=== PATIENT | female | born 1985 | race Caucasian/White ===

== ENCOUNTER → 2016-07-29 | Outpatient (CLI) | payer BC ==
[~2016-07-29] MED LIST: ENOX40IN SQ; MTR600X PO; OXYC-57 PO; PRENTAB26 PO
== END | disposition home or self-care (01) ==
LOC: C.PAPS 11:52
PROVIDERS: ATTEND Obstetrics & Gynecology
DX: Z01.419 Encounter for gynecological examination (general) (routine) without abnormal findings (principal)

== ENCOUNTER → 2016-09-16 | Outpatient (CLI) | payer BC | END | disposition home or self-care (01) | LOC: C.LABPBG 14:52 | PROVIDERS: ATTEND Obstetrics & Gynecology | DX: O09.10 Supervision of pregnancy with history of ectopic pregnancy, unspecified trimester (principal); Z3A.00 Weeks of gestation of pregnancy not specified ==

== ENCOUNTER → 2016-09-20 | Outpatient (CLI) | payer BC | END | disposition home or self-care (01) | LOC: C.LAB 07:44 | PROVIDERS: ATTEND Obstetrics & Gynecology | DX: O09.10 Supervision of pregnancy with history of ectopic pregnancy, unspecified trimester (principal); Z3A.00 Weeks of gestation of pregnancy not specified ==

== ENCOUNTER → 2016-10-03 | Outpatient (CLI) | payer BC ==
[2016-10-03 17:20] LABS: URINE APPEARANCE TURBID (CLEAR); URINE BILIRUBIN NEG (NEG); URINE COLOR YELLOW; URINE NITRITE NEG (NEG); URINE PH 7.5 (4.5-7.5); URINE SPECIFIC GRAVITY 1.019 (1.000-1.030); UROBILINOGEN NEG (NEG)
[2016-10-03 17:26] LABS: MANUAL MICROSCOPIC REQUIRED? NO; REVIEW REQ? NO
== END | disposition home or self-care (01) ==
LOC: C.LABSPEC 16:04
PROVIDERS: ATTEND Obstetrics & Gynecology
DX: O09.10 Supervision of pregnancy with history of ectopic pregnancy, unspecified trimester (principal)

== ENCOUNTER → 2016-10-11 | Outpatient (CLI) | payer BC ==
[2016-10-13 03:05] LABS: CHLAMYDIA TRACH RNA*** NOT DETECTED (NOT DETECTED); GC (NEIS GONORRHOEAE)RNA** NOT DETECTED (NOT DETECTED)
== END | disposition home or self-care (01) ==
LOC: C.LABSPEC 11:27
PROVIDERS: ATTEND Obstetrics & Gynecology
DX: O09.219 Supervision of pregnancy with history of pre-term labor, unspecified trimester (principal); Z3A.00 Weeks of gestation of pregnancy not specified

== ENCOUNTER → 2017-05-01 | Outpatient (CLI) | payer BC | END | disposition home or self-care (01) | LOC: C.LABSPEC 13:56 | PROVIDERS: ATTEND Obstetrics & Gynecology | DX: Z34.83 Encounter for supervision of other normal pregnancy, third trimester (principal) ==

== ENCOUNTER 2017-05-26 05:29 | Inpatient (IN) | payer BC ==
--- NOTE | 2017-05-25 09:49 | HISTORY & PHYSICAL EXAMINATION ---
DATE OF ADMISSION: 05/26/2017 ADMITTING DIAGNOSES: 1. Term . 2. Previous section. 3. History of deep venous thrombosis. ADMISSION HISTORY: The patient is a 31-year-old 4, para 0-1-2-1 with an EDC of 29 May at 39+ weeks' gestational age, who is admitted for an elective repeat section. EDC was established by a first trimester ultrasound. The patient's previous ended at 35 weeks' gestational age with an emergent section for IUGR with nonreassuring heart rate tracing at 35 weeks' gestational age. During this , the patient has been followed with serial ultrasounds for growth, which have been reassuring. The patient had been counseled on the risks and benefits of a repeat section versus trial of labor and the patient has opted for a section. The patient has a history of a DVT in 2006. Because of this, she received Lovenox with her last and this is planned again for this . Laboratory values for the show a blood type of A positive, antibody negative, rubella immune, and hepatitis B negative. She had a negative quad screen. She had a normal 1-hour Glucola x2 and a negative third trimester beta strep culture. PAST MEDICAL HISTORY: OBSTETRICAL: As above. GYNECOLOGICAL: Ectopic in 2011. MEDICAL: None. SURGICAL: As above. ALLERGIES: No known drug allergies. SOCIAL HISTORY: Previous smoker. REVIEW OF SYSTEMS: As per HPI. ADMISSION PHYSICAL EXAMINATION: GENERAL: Shows a gravid female in no acute distress. VITAL SIGNS: Blood pressure 124/80, height of 5 feet 1 inch and a weight of 125 pounds. HEENT EXAMINATION: Unremarkable. NECK: Supple. LUNGS: Clear. HEART: With a regular rhythm and rate. ABDOMEN: Gravid, vertex. Estimated weight of 6 pounds. PELVIC: Shows the cervix to be closed, 50% and high. EXTREMITIES: Shows no deep calf tenderness. NEUROLOGIC: Grossly intact. INDICATION: A 31-year-old 4, para 0-1-2-1, 39+ weeks' gestational age for repeat section. PLAN: Risks, benefits and alternatives to the surgery have been discussed. While the benefits will be delivery of the infant, the risks are bleeding, infection, inadvertent injury to bowel or bladder, readmission or postoperative DVT. Because of a history of DVT prior to any pregnancies, the patient will be anticoagulated after this . Previously, she was on Lovenox 40 mg subQ for 6 weeks , which will be planned for this . All questions have been answered. Permit has been signed and she wishes to proceed.
[2017-05-25 10:19] VITALS: BMI 24.0
--- NOTE | 2017-05-25 10:42 | PAT Medication Instructions ---
Service Date May 25, 2017. Current Home Medication List Multivit/Min/Iron/Fol Ac/Pren ( Vitamin), 1 TAB PO HS Medication Instructions For Your Scheduled Surgery - Take the following medications as scheduled the night before surgery: Multivit/Min/Iron/Fol Ac/Pren ( Vitamin), 1 TAB PO HS *Nothing to eat or drink after midnight* If you have any questions please call us at [phone] or [phone] or [phone]
[2017-05-25 10:50] LABS: BASO % 0.2 %; BASO ABS # 0.02 K/uL (0-0.2); COMPLETE YES; EOS % 0.4 %; HEMATOCRIT 37.2 % (37-47); IG% 0.9 %; LYMPH % 8.5 %; LYMPH ABS # 0.89 K/uL (1.2-3.4); MEAN CELL VOLUME 91.6 fL (80-100); MEAN CORPUSCULAR HEMOGLOBIN 31.8 pg (25-34); MEAN CORPUSCULAR HGB CONC 34.7 g/dl (32-36); MONO % 6.1 %; NEUT % 83.9 %; PLATELET COUNT 190 K/uL (130-400); RED BLOOD COUNT 4.06 M/uL (4.2-5.4); WHITE BLOOD COUNT 10.41 K/uL (4.8-10.8)
[2017-05-26] VITALS (14 sets, daily range): BP systolic 95–104; BP diastolic 54–78; PULSE 53–68; TEMP 36.5–36.8; O2SAT 96–99; Ht 152.4 cm; Wt 56.8 kg
[~2017-05-26] VITALS: Ht 152.4 cm; Wt 56.8 kg
[~2017-05-26 05:29] MED LIST changes: -ENOX40IN SQ; -MTR600X PO; -OXYC-57 PO
[2017-05-26] MEDS ORDERED: CEFAZOLIN IV 2,000 MG in SYRINGE 0 ML IV SCH (06:00)
[2017-05-26] MEDS ORDERED: CITRIC ACID/SODIUM CITRATE 15 ML UDC PO ONE (06:15)
[2017-05-26] MEDS ORDERED: LACTATED RINGER'S 1000ML 1,000 ML IV ONE (06:15)
[2017-05-26 06:37] LABS: BASO % 0.1 %; BASO ABS # 0.01 K/uL (0-0.2); EOS % 0.7 %; HEMATOCRIT 35.2 % (37-47); IG% 0.6 %; LYMPH % 10.5 %; LYMPH ABS # 0.95 K/uL (1.2-3.4); MEAN CORPUSCULAR HEMOGLOBIN 31.3 pg (25-34); MEAN PLATELET VOLUME 9.7 fL (7.4-10.4); MONO % 6.3 %; NEUT % 81.8 %; PLATELET COUNT 174 K/uL (130-400); RED BLOOD COUNT 3.87 M/uL (4.2-5.4); WHITE BLOOD COUNT 9.09 K/uL (4.8-10.8)
[2017-05-26 06:39] LABS: COMPLETE YES; MEAN CORPUSCULAR HGB CONC 34.4 g/dl (32-36)
[2017-05-26] MEDS ORDERED: FENTANYL CITRATE INJ 50 MCG/1 ML 2 ML VIAL ONE (07:05)
[2017-05-26] MEDS ORDERED: MORPHINE SULFATE PF 2MG/2ML SYR ONE (07:05)
[2017-05-26] MEDS ORDERED: OXYTOCIN INJ 10 UNITS/ML VIAL ONE (07:06)
[2017-05-26] MEDS ORDERED: FENTANYL CITRATE INJ 50 MCG/1 ML 2 ML VIAL IV PRN (07:15)
[2017-05-26] MEDS ORDERED: EpHEDrine SULFATE INJ 50 MG/ML AMP IV PRN ×2 (07:15→09:15)
[2017-05-26] MEDS ORDERED: ONDANSETRON INJ 2 MG/ML 2 ML VIAL IV PRN ×2 (07:15→09:15)
[2017-05-26] MEDS ORDERED: ATROPINE SULFATE 0.1 MG/ML 5ML SYR IV PRN (07:15)
--- NOTE | 2017-05-26 07:18 | History & Physical Bridge Note ---
H&P Re-Evaluation Bridge Note: I have examined the patient, reviewed the History & Physical and in the interval since the performance of the History & Physical I have noted the following changes of clinical significance: No changes noted
[2017-05-26] MEDS ORDERED: LACTATED RINGER'S 1000ML 1,000 ML IV SCH (07:30)
[2017-05-26] MEDS ORDERED: MEASLES, MUMPS & RUBELLA VIRUS VIAL SQ. ONE (08:30)
[2017-05-26] MEDS ORDERED: LANOLIN OINT EXT PRN ×2 (08:30)
[2017-05-26] MEDS ORDERED: MAGNESIUM HYDROXIDE SUSP 30 ML UDC PO PRN (08:30)
[2017-05-26] MEDS ORDERED: SENNA 8.6 MG TAB PO PRN (08:30)
[2017-05-26] MEDS ORDERED: DC PCA PRN (08:30)
[2017-05-26] MEDS ORDERED: SUPERCREAM 0.870 % 15GM JAR EXT PRN (08:30)
--- NOTE | 2017-05-26 08:32 | [facility] Post Operative Brief Note ---
Immediate Operative Summary Operative Date May 26, 2017. Pre-Operative Diagnosis 1. Term intrauterine 2. Previous caesarean section 3. History of IUGR Post-Operative Diagnosis Same as pre-op Procedure(s) Performed Repeat caesarean section, low uterine transverse incision, delivery of live female childe [place] [address] Steven Werner Petroleum Inspector Supervisor Surgeon(s) Dr. Radha Paul Estimated Blood Loss 600 ML Findings DELIVERED VIABLE FEMALE WEIGHT 6#[id number], APGARS 9,9. NORMAL UTERUS, NORMAL FALLOPIAN TUBES AND OVARIES BILATERALLY. Specimens A: placenta -exam B: cord blood C: cord blood gases Drains MADRIGAL TO STRAIGHT DRAINAGE, CLEAR AT END OF CASE Anesthesia SPINAL Disposition Recovery Room / PACU
[2017-05-26] MEDS ORDERED: ONDANSETRON INJ 2 MG/ML 2 ML VIAL ONE (08:33)
[2017-05-26] MEDS: SIMETHICONE 80 MG CHEW PO SCH ×4 (09:00→19:56)
[2017-05-26] MEDS ORDERED: NALOXONE HCL INJ 1 MG in SODIUM CHLORIDE 0.9% 1000ML 1,000 ML IV PRN (09:01)
[2017-05-26] MEDS ORDERED: SODIUM CHLORIDE 0.9% 1000ML 1,000 ML IV PRN (09:01)
[2017-05-26] MEDS ORDERED: LACTATED RINGER'S 1000ML 500 ML IV PRN (09:01)
[2017-05-26] MEDS ORDERED: NALOXONE HCL INJ 0.08 MG in SYRINGE 1.8 ML IV PRN (09:01)
--- NOTE | 2017-05-26 09:03 | Anesthesiology Progress Note ---
Anesthesia Post Op Note Date & Time May 26, 2017 at 09:03 Notes Mental Status: alert / awake / arousable, participated in evaluation Pt Amnestic to Procedure: Yes Nausea / Vomiting: adequately controlled Pain: adequately controlled Airway Patency, RR, SpO2: stable & adequate BP & HR: stable & adequate Hydration State: stable & adequate Anesthetic Complications: no major complications apparent
[2017-05-26] MEDS ORDERED: NO NARCOTICS OR SEDATIVES SCH (09:15)
[2017-05-26] MEDS ORDERED: MEPERIDINE HCL 25 MG/ML CARP IV PRN (09:15)
[2017-05-26] MEDS ORDERED: DiphenhydrAMINE HCL 50 MG/ML VIAL IV PRN (09:15)
[2017-05-26] MEDS ORDERED: MoRPHine SULFATE PF 1 MG/ML 10 ML AMP/VIAL EPI PRN (09:15)
[2017-05-26] MEDS ORDERED: NALOXONE HCL 0.4 MG/1 ML VIAL/CARP IV PRN (09:15)
[2017-05-26] MEDS ORDERED: NALBUPHINE HCL INJ 10 MG/ML AMP IV PRN (09:15)
--- NOTE | 2017-05-26 09:30 | OPERATIVE REPORT ---
DATE OF OPERATION: 05/26/2017 FINDINGS: Viable female with Apgars of 8 and 9. Weight of 6 pounds 3 ounces. Arterial and venous cord gases pending. Normal appearing tubes and ovaries bilaterally. PROCEDURE IN DETAIL: The patient was taken to the operating room and after spinal anesthesia, was placed in supine position and draped and prepped in the usual fashion. Pfannenstiel type incision through previous surgical scar was made. Underlying subcutaneous tissue was dissected down to the ventral abdominal fascia, which was nicked and opened in a horizontal manner. Preperitoneal fascia was dissected away until the peritoneal cavity was entered and opened in a vertical manner. Bladder blade was placed. Peritoneum overlying the uterus was elevated, opened in a semi-lunar fashion, and the inferior margin of which was taken down creating the bladder flap. Uterus was entered sharply and extended in a semilunar fashion manually. Membranes were ruptured for clear fluid. Viable female with description as above was delivered. Cord was clamped and cut and the baby was passed off to pediatric, who was in attendance for the delivery. Cord gases and cord blood samples obtained. Placenta was delivered spontaneously and the uterus was exteriorized. The uterine cavity was wiped clean of any residual blood tissue and/or clot. The uterine incision was then closed with 2 layers of 4-0 Vicryl, the first a running locking stitch and the second an imbricating stitch. Hemostasis achieved and the uterus returned to the pelvic cavity. The paracolic gutters were cleared bilaterally of any blood tissue and/or clot. Uterine incision was inspected again for hemostasis, which was present. Sponge and needle count was correct. Rectus muscle was then plicated in the midline with a running 2-0 Vicryl stitch. The fascia was closed laterally with 0 Vicryl running suture. Subcutaneous tissue was irrigated with warm saline and the skin incision was closed with a 4-0 Monocryl subcuticular suture. Sterile dressing was applied and the patient was taken to the recovery room in satisfactory condition. I attest to the content of the Intraoperative Record and any orders documented therein. Any exception s are noted below.
[2017-05-26] MEDS: KETOROLAC TROMETHAMINE 30 MG/ML VIAL IV. PRN ×3 (10:28→23:42)
[2017-05-26] MEDS: OXYTOCIN INJ 20 UNITS in LACTATED RINGER'S 1000ML 1,000 ML IV SCH ×2 (10:50→18:18)
[2017-05-26] MEDS: DOCUSATE SODIUM 100 MG CAP PO SCH (19:56)
[2017-05-27 00:30] VITALS: O2SAT 96
[2017-05-27 01:33] VITALS: O2SAT 98
[2017-05-27] MEDS ORDERED: KETOROLAC TROMETHAMINE 30 MG/ML VIAL IV. PRN (01:45)
[2017-05-27] MEDS ORDERED: ONDANSETRON INJ 2 MG/ML 2 ML VIAL IV PRN (01:45)
[2017-05-27] MEDS ORDERED: OXYCODONE/ACETAMINOPHEN 5-325 TAB PO PRN (01:45)
[2017-05-27] MEDS ORDERED: DC INTRASPINAL MORPHINE ONE (01:45)
[2017-05-27 03:30] VITALS: BP 97/65; PULSE 62; TEMP 36.7
[2017-05-27] MEDS ORDERED: CEFAZOLIN IV 2 MG in DEXTROSE 5% 50ML 50 ML IV SCH (06:00)
[2017-05-27] MEDS: IBUPROFEN 600 MG TAB PO PRN ×5 (06:05→23:13)
[2017-05-27] MEDS: OXYCODONE/ACETAMINOPHEN 5-325 TAB PO PRN ×5 (06:06→23:13)
[2017-05-27 07:06] LABS: BASO % 0.1 %; BASO ABS # 0.01 K/uL (0-0.2); COMPLETE YES; EOS % 0.2 %; HEMATOCRIT 32.4 % (37-47); IG% 0.2 %; LYMPH % 4.4 %; LYMPH ABS # 0.55 K/uL (1.2-3.4); MEAN CELL VOLUME 91.3 fL (80-100); MEAN CORPUSCULAR HEMOGLOBIN 31.8 pg (25-34); MEAN CORPUSCULAR HGB CONC 34.9 g/dl (32-36); MEAN PLATELET VOLUME 9.5 fL (7.4-10.4); MONO % 4.8 %; NEUT % 90.3 %; PLATELET COUNT 153 K/uL (130-400); RED BLOOD COUNT 3.55 M/uL (4.2-5.4); WHITE BLOOD COUNT 12.48 K/uL (4.8-10.8)
--- NOTE | 2017-05-27 08:11 | Progress Note ---
Subjective May 27, 2017. Subjective conversation w/ patient, physical exam, chart review, lab review Ambulation: ambulating normally Voiding: no voiding problems Passing Gas: No (reports she's not passed gas yet, but feels well otherwise) Diet Tolerance: Regular Diet Lochia: Moderate Feeding Type: Breast Feeding Pain: controlled Review of Systems Respiratory: No shortness of breath Cardiac: No chest pain Abdomen: No vomiting Female : No dysuria Objective Vital Signs Date Time Temp Pulse Resp B/P (MAP) Pulse Ox O2 Delivery O2 Flow Rate FiO2 05/27/17 03:30 36.7 62 16 97/65 (76) Room Air 05/27/17 01:33 16 98 05/27/17 00:30 18 96 05/26/17 23:25 16 96 05/26/17 23:25 36.8 62 16 95/60 (72) 96 Room Air 05/26/17 23:25 96 Room Air 05/26/17 22:30 18 98 05/26/17 21:30 18 96 05/26/17 20:30 18 97 05/26/17 19:40 18 98 05/26/17 19:40 36.7 68 18 104/78 (87) 98 Room Air 05/26/17 18:20 20 99 05/26/17 17:20 18 98 05/26/17 16:20 16 99 05/26/17 15:20 18 99 05/26/17 15:00 Room Air 05/26/17 15:00 36.5 56 16 100/66 (77) 99 Room Air 05/26/17 14:20 16 99 05/26/17 13:20 16 99 05/26/17 12:20 16 98 05/26/17 12:20 36.5 53 18 101/63 (76) Room Air 05/26/17 11:20 16 99 05/26/17 11:20 99 Room Air 05/26/17 11:20 36.5 57 16 102/54 (70) Room Air 05/26/17 11:20 Room Air Physical Exam General Appearance: WELL-APPEARING, WD/WN, NO APPARENT DISTRESS Respiratory/Chest: lungs clear, normal breath sounds, no respiratory distress Cardiovascular: regular rate, rhythm, no gallop Abdomen: normal bowel sounds, soft Fundus: Firm, Non-Tender, Relation to Umbilicus (at U) Incision Description: Clean, Dry & Intact Extremities: non-tender, normal inspection Laboratory Results Last 24 Hours Test 05/27/17 06:53 White Blood Count 12.48 K/uL Red Blood Count 3.55 M/uL Hemoglobin 11.3 g/dL Hematocrit 32.4 % Mean Corpuscular Volume 91.3 fL Mean Corpuscular Hemoglobin 31.8 pg Mean Corpuscular Hemoglobin Concent 34.9 g/dl Platelet Count 153 K/uL Mean Platelet Volume 9.5 fL Neutrophils (%) (Auto) 90.3 % Lymphocytes (%) (Auto) 4.4 % Monocytes (%) (Auto) 4.8 % Eosinophils (%) (Auto) 0.2 % Basophils (%) (Auto) 0.1 % Neutrophils # (Auto) 11.26 K/uL Lymphocytes # (Auto) 0.55 K/uL Monocytes # (Auto) 0.60 K/uL Eosinophils # (Auto) 0.03 K/uL Basophils # (Auto) 0.01 K/uL RDW Standard Deviation 43.7 fL RDW Coefficient of Variation 13.2 % Immature Granulocyte % (Auto) 0.2 % Immature Granulocyte # (Auto) 0.03 K/uL Assessment and Plan Post-Op Day#: 1 Continue Routine Care: 31 yof (now2) s/p repeat c/s 05/26 A+/GBS-/R non immune Hgb 12.9, 12.2, 11.3. No s/s anemia. Pt doing well clinically, discussed lovenox 40 that will begin tomorrow, and continue for 6 weeks. Pt did this for previous preg, so is aware of how to administer/expectations. Continue routine care - encourage ambulation, monitor lochia, control pain with motrin tylenol/perc. SHERIE PAUL FMR PGY 1 Resident Physician Supervision Note: I interviewed and examined the patient. Discussed with Dr. Paul and agree with findings and plan as documented in the note. Any exceptions or clarifications are listed here: [None] Documented By: Lissette Mercer Resident Tracking Resident Involvement: Resident Care Provided Care Provided: OB Delivery
[2017-05-27] MEDS ORDERED: ENOX40IN SQ (08:12)
--- NOTE | 2017-05-27 08:13 | Discharge Instructions ---
Discharge Instructions Date of Service May 27, 2017. Admission Reason for Admission: History Of Section Discharge Discharge Diagnosis / Problem: Repeat section Discharge Goals Goal(s): Routine recovery after Medications Continue Dispensed Medications: supercream, lansinoh Activity Recommendations Activity Limitations: per Instructions/Follow-up section . Instructions / Follow-Up Instructions / Follow-Up Please take your Lovenox daily as directed for 6 weeks after baby is born. ACTIVITY RECOMMENDATIONS: * Gradual return to full activity over the next 2-3 weeks. * No lifting - nothing heavier than baby over the next 2-3 weeks. * Do not engage in vigorous exercise, sexual activity or sports until cleared by your physician. * Do not drive or operate any motorized equipment until cleared by your physician. * You may shower/bathe daily. MEDICATIONS: For discomfort or pain, you may use Acetaminophen (Tylenol), Ibuprofen (Advil), or Naproxen (Aleve) following the package directions. For constipation you may use Colace following the package directions. BREAST CARE: If you are not breast feeding: * Wear a supportive bra 24 hours a day for one to two weeks. * Avoid stimulating your breasts and nipples as much as possible during the first few weeks after delivery. * When taking a shower, have the warm water hit your back, not breasts. * When your breasts feel full, apply ice packs. Usually three to four times a day helps ease the discomfort. * Take a mild pain medication (Tylenol / Motrin) when you are uncomfortable. If breast feeding: * Use breast milk to lubricate nipples. Lansinoh cream may be used for sore nipples. You do not need to remove cream prior to breast feeding. If using a different brand of cream, check the label for directions regarding removal of cream prior to nursing. * Wear a supportive bra. * If having problems with breasts or breast feeding, call a warehouse consultant or your health care provider. SPECIAL CARE INSTRUCTIONS: When you are discharged from the hospital, it is important for you to follow the instructions listed below: * During the first week at home, you should be able to care for yourself and your baby. In addition, the usual light household activities are encouraged. * Limit your activities to the way you feel. Do not try to clean the house or move furniture. Be sensible. * If you actively engage in sports and have done so up until the time of your delivery, you may resume these activities as soon as you feel able. This may take up to one month or even longer. Use good judgment. * Continue to take your vitamins for at least six weeks after the of your baby. * Your diet need not be limited unless you were on a special diet before your delivery. Breast-feeding mothers need around 2500 calories per day and at least 64-80 ounces of fluid per day (8 to 10 glasses). * You should eat foods from the four major food groups. Crash diets or fad diets are to be avoided. Eating lean meats, fresh fruits and vegetables, low-fat dairy products, high fiber foods and a regular exercise program, will help you get back to your pre- weight without putting your health at risk. * Constipation is sometimes a problem after delivery. Take a mild laxative as needed. If breast feeding, Milk of Magnesia is acceptable to use. You may use a suppository or Fleets enema. * A daily shower or tub bath is suggested. Wash incision daily with warm soapy water and pat dry. It doesn't need to be covered unless drainage is present. * A bloody vaginal discharge will usually continue until around four weeks . A small amount of bleeding may continue for as long as six weeks. Vaginal discharge changes from the bright red bleeding after delivery to pink then brownish and finally yellowish-pink before becoming white and disappearing. * Bleeding may increase with activity. Your first period may come in 4-8 weeks. If you are breast feeding, your period may be delayed even longer. * [place] (sex) can begin whenever both you and your partner feel comfortable and do not have any form of genital infection. It is recommended that you wait at least six weeks for internal and external healing to occur. If you have questions, please talk to your health care practitioner. A condom should be used to prevent infection and . * Foreplay, gentle intercourse and lubrication is very important the first several times to prevent pain. A water-based lubricant such as K-Y jelly or Astroglide may be used. * If you have RH negative blood and your baby is RH positive, you will receive RHOGAM by injection prior to discharge. The nurse will give you a card to keep with you that has the date and place that you received RHOGAM after delivery. * During your care, you had a Rubella screen done to check for the presence of rubella antibodies in your blood. If your test was negative, you will receive a Rubella vaccine prior to discharge. This vaccine may cause a fever, soreness at the injection site and flu-like symptoms. If these symptoms persist, notify your health care practitioner. is not advised for one month after a Rubella vaccine. * Verbalizes understanding of car seat law as reviewed with patient nursing. * Car Seat hand-out given and reviewed with patient by nursing. * Shaken baby information reviewed with patient by nursing. Call you doctor if: * Heavy bleeding (saturating several pads an hour) or passing clots the size of your fist. * A fever >101 degrees F (38.3 degrees C) on two occasions four hours apart and /or chills. * Unusual pain in the pelvic or vaginal areas. * Call the doctor for any increased redness, drainage or swelling around the incision and any pain unrelieved by prescribed pain medication. * "Baby Blues" lasting longer than two weeks. If you have any questions or concerns, call your health care practitioner at . FOLLOW UP VISIT: * Please call the office at to schedule a 6 week examination. It is important you keep this appointment. It is important for you to make arrangements for either yearly or twice yearly check-ups thereafter. Current Hospital Diet Patient's current hospital diet: Clear Liquid Diet Discharge Diet Recommended Diet: Regular Diet Procedures Procedures Performed: Repeat caesarean section, low uterine transverse incision, delivery of live female childe at 0806 Pending Studies Studies pending at discharge: no Medical Emergencies . Who to Call and When: Medical Emergencies: If at any time you feel your situation is an emergency, please call [phone] immediately. . Non-Emergent Contact Non-Emergency issues call your: Primary Care Provider . . "Provider Documentation" section prepared by Deena Paul. . VTE Core Measure Inpt VTE Proph given/why not?: SCD's
[2017-05-27 08:30] VITALS: BP 100/66; PULSE 63; TEMP 36.5; O2SAT 96
[2017-05-27] MEDS: FERROUS SULFATE 325 MG TAB PO SCH (08:43)
[2017-05-27] MEDS: SIMETHICONE 80 MG CHEW PO SCH ×4 (08:43→20:17)
[2017-05-27] MEDS: DOCUSATE SODIUM 100 MG CAP PO SCH ×2 (08:43→20:17)
[2017-05-27] MEDS: PRENATAL VITAMIN TAB PO SCH (08:44)
[2017-05-27 10:33] LABS: INR 0.9 (0.9-1.1); PROTHROMBIN TIME (PATIENT) 9.4 SECONDS (9.0-12.0)
[2017-05-27 16:10] VITALS: BP 99/64; PULSE 63; O2SAT 96
[2017-05-27] MEDS ORDERED: BISACODYL 5 MG TABEC PO ONE (22:00)
[2017-05-27 23:15] VITALS: BP 100/63; PULSE 62; TEMP 36.8; O2SAT 97
[2017-05-28] MEDS: OXYCODONE/ACETAMINOPHEN 5-325 TAB PO PRN ×2 (05:18→11:02)
[2017-05-28] MEDS: IBUPROFEN 600 MG TAB PO PRN ×2 (05:18→11:02)
[2017-05-28 06:40] LABS: HEMATOCRIT 32.4 % (37-47)
[2017-05-28] MEDS: SIMETHICONE 80 MG CHEW PO SCH ×2 (07:39→11:01)
[2017-05-28] MEDS: PRENATAL VITAMIN TAB PO SCH (07:39)
[2017-05-28] MEDS: FERROUS SULFATE 325 MG TAB PO SCH (07:39)
[2017-05-28] MEDS: DOCUSATE SODIUM 100 MG CAP PO SCH (07:39)
[2017-05-28 07:50] VITALS: BP 102/64; PULSE 59; TEMP 36.4
--- NOTE | 2017-05-28 07:52 | Progress Note ---
Subjective May 28, 2017. Subjective conversation w/ patient, physical exam Ambulation: ambulating normally Voiding: no voiding problems Diet Tolerance: Regular Diet Feeding Type: Breast Feeding Objective Vital Signs Date Time Temp Pulse Resp B/P (MAP) Pulse Ox O2 Delivery O2 Flow Rate FiO2 05/27/17 23:15 36.8 62 18 100/63 05/27/17 23:15 97 Room Air 05/27/17 16:10 63 16 99/64 (76) 96 Room Air 05/27/17 16:10 96 Room Air 05/27/17 08:30 96 Room Air 05/27/17 08:30 36.5 63 16 100/66 (77) 96 Room Air Physical Exam General Appearance: WELL-APPEARING, NO APPARENT DISTRESS Fundus: Firm, Non-Tender Incision Description: Clean, Dry & Intact Extremities: no calf tenderness Laboratory Results Last 24 Hours Test 05/27/17 10:06 05/28/17 06:00 Prothrombin Time 9.4 SECONDS Prothromb Time International Ratio 0.9 Hemoglobin 11.2 g/dL Hematocrit 32.4 % Assessment and Plan Post-Op Day#: 2 Continue Routine Care: - doing well - will start the Lovenox, 40mg SQ q daily as planned - pt ready for d/c - instructions Rx given - will f/u in 2 weeks for a post-op check
[2017-05-28] MEDS ORDERED: OXYC-57 PO (07:53)
[2017-05-28] MEDS ORDERED: MTR600X PO (07:53)
[2017-05-28] MEDS ORDERED: ENOXAPARIN 40 MG/0.4 ML SYR SQ SCH (08:00)
--- NOTE | 2017-05-28 08:22 | DISCHARGE SUMMARY ---
ADMITTING DIAGNOSES: 1. Term . 2. Previous section. 3. History of deep venous thrombosis. DISCHARGE DIAGNOSES: Same. PROCEDURES PERFORMED: Repeat low cervical transverse section. DISCHARGE MEDICATIONS: 1. Percocet 5/325 1-2 p.o. q. 4-6 hours p.r.n. pain. 2. Motrin 600 mg p.o. q. 6 hours p.r.n. pain. 3. Lovenox 40 mg subQ daily. ADMISSION HISTORY: The patient is a 31-year-old 4, para 0-1-2-1 with an EDC of May 29 at 39+ weeks gestational age who is admitted for an elective repeat section. EDC was established by first trimester ultrasound. The patient's previous ended at 35 weeks gestational age with an emergent for IUGR with a nonreassuring heart rate tracing. During this , the patient has been followed with serial ultrasounds for growth, which have been reassuring. The patient has been counseled on the risks and benefits of a repeat section versus trial of labor and the patient opted for a repeat section. The patient has a history of a DVT in 2006. Because of this, she received Lovenox with her last and as planned again for this . Laboratory values for the show a blood type of A positive, antibody negative, rubella immune, hepatitis B negative. She had a negative quad screen. She had a normal 1-hour Glucola x2 and a negative third trimester beta strep culture. PHYSICAL EXAMINATION: GENERAL: Shows a gravid female in no acute distress. VITAL SIGNS: Blood pressure 124/80, height of 5 feet 1 inches and weight 125 pounds. HEENT: Unremarkable. NECK: Supple. LUNGS: Clear. HEART: With a regular rhythm and rate. ABDOMEN: Gravid, vertex. Estimated weight of 6 pounds. PELVIC: Shows the cervix to be long, thick and closed. EXTREMITIES: Showed no deep calf tenderness. NEUROLOGIC: Grossly intact. ADMISSION LABORATORY VALUES: Showed an H&H of 12.1 and 35.2. HOSPITAL COURSE: On day of admission, patient was taken to the operating room where she underwent the above listed procedures. Operative findings showed a viable female with Apgars of 8 and 9, weight of 6 pounds 3 ounces, normal appearing tubes and ovaries bilaterally. Postoperatively, the patient did well. Serna catheter was removed on the first postoperative day. H&H came back at 11.3 and 32.4. On the second postoperative day, the patient was ambulating without difficulty and tolerating a regular diet. Lovenox was started at 40 mg subQ on postoperative day #2. She was given the routine discharge instructions and the prescriptions for the medications were as listed as above. She will follow up in the office in 2 weeks' time for a postoperative check, but as always, she had been instructed to call with any questions, problems or difficulties.
[2017-05-28 13:00] VITALS: BP_DIAS 64; PULSE 59; TEMP 36.4
== END 2017-05-28 13:00 | disposition home or self-care (01) | DRG 766 ==
LOC: C.LD 05:29 → EDSTATUS 07:30 → C.OBG 11:48
PROVIDERS: ADMIT Obstetrics & Gynecology; ATTEND Obstetrics & Gynecology
PROC: 10D00Z1 Extraction of Products of Conception, Low, Open Approach (ICD-10-PCS; principal; 2017-05-26 07:30)
DX: O34.219 Maternal care for unspecified type scar from previous cesarean delivery (principal); O69.81X1 Labor and delivery complicated by cord around neck, without compression, fetus 1; Z37.0 Single live birth; Z3A.39 39 weeks gestation of pregnancy